=== PATIENT | female | born 1945 | race Caucasian/White ===

== ENCOUNTER 2019-02-15 15:45 | Emergency (ER) | payer MEDICARE ==
[~2019-02-15] VITALS: Ht 167.6 cm; Wt 57.0 kg
[2019-02-15 16:13] LABS: BASOPHILS # (AUTO) 0.1 X10'3 (0-0.2); BASOPHILS % (AUTO) 0.9 % (0-1); EOSINOPHILS # (AUTO) 0.2 X10'3 (0-0.9); EOSINOPHILS % (AUTO) 3.1 % (0-6); HEMATOCRIT 42.8 % (35.0-45.0); HEMOGLOBIN 14.6 g/dl (12.0-16.0); LYMPHOCYTES % (AUTO) 28.3 % (21-51); MEAN CORPUSCULAR HGB CONC 34.2 g/dL (33.0-36.5); MEAN CORPUSCULAR VOLUME 90.7 FL (78-98); MEAN PLATELET VOLUME 9.1 FL (7.4-10.4); MONOCYTES # (AUTO) 0.7 X10'3 (0-0.9); MONOCYTES % (AUTO) 9.5 % (2-12); NEUTROPHILS # (AUTO) 4.1 X10'3 (1.8-7.7); NEUTROPHILS % (AUTO) 58.2 % (42-75); PLATELET COUNT 288 X10'3 (140-440); RED BLOOD COUNT 4.72 X10'6 (4.20-5.60); RED CELL DISTRIBUTION WIDTH 12.7 % (11.5-14.5)
[2019-02-15] MEDS ORDERED: aspirin 81mg tab.chew PO ONE (16:20)
[2019-02-15 16:23] LABS: PARTIAL THROMBOPLASTIN TIME 27 SECONDS (22-32)
[2019-02-15 16:24] LABS: ALANINE AMINOTRANSFERASE 24 U/L (12-78); ALKALINE PHOSPHATASE 76 IU/L (46-116); ANION GAP 9 (8-16); ASPARTATE AMINO TRANSFERASE 19 U/L (10-37); BILIRUBIN,TOTAL 0.4 MG/DL (0.1-1.0); BLOOD UREA NITROGEN 28 MG/DL (7-18); BUN/CREATININE RATIO 30.4 (6.6-38.0); CALCIUM 9.1 MG/DL (8.5-10.1); CHLORIDE 105 MMOL/L (99-107); CREATININE 0.92 MG/DL (0.40-0.90); GLUCOSE 86 MG/DL (70-104); POTASSIUM 3.4 MMOL/L (3.5-5.1); SODIUM 143 MMOL/L (135-145); TOTAL CARBON DIOXIDE 29.2 MMOL/L (24-32); eGFR 60 ML/MIN
[2019-02-15 16:40] LABS: D-DIMER 0.29 MG/L FEU (0-0.50)
[2019-02-15 17:43] VITALS: BP 145/69
== END 2019-02-15 17:45 | disposition home or self-care (01) ==
LOC: ER 15:46
DX: R10.13 Epigastric pain (principal); R94.31 Abnormal electrocardiogram [ECG] [EKG]; Z88.5 Allergy status to narcotic agent
CPT/HCPCS: 36415; 71045; 80053; 83880; 84484; 85025; 85379; 85610; 85730; 93005; 99284

== ENCOUNTER 2019-07-27 09:56 | Day surgery (SDC) | payer MEDICARE ==
[2019-07-26 12:38] LABS: BASOPHILS # (AUTO) 0.1 X10'3 (0-0.2); EOSINOPHILS # (AUTO) 0.2 X10'3 (0-0.9); EOSINOPHILS % (AUTO) 2.7 % (0-6); HEMATOCRIT 43.2 % (35.0-45.0); HEMOGLOBIN 14.2 g/dl (12.0-16.0); LYMPHOCYTES # (AUTO) 1.9 X10'3 (1.1-4.8); LYMPHOCYTES % (AUTO) 33.5 % (21-51); MEAN CORPUSCULAR HEMOGLOBIN 30.7 PG (27.0-31.0); MEAN CORPUSCULAR VOLUME 92.9 FL (78-98); MEAN PLATELET VOLUME 9.4 FL (7.4-10.4); MONOCYTES # (AUTO) 0.5 X10'3 (0-0.9); MONOCYTES % (AUTO) 8.1 % (2-12); NEUTROPHILS # (AUTO) 3.1 X10'3 (1.8-7.7); NEUTROPHILS % (AUTO) 54.7 % (42-75); PLATELET COUNT 262 X10'3 (140-440); RED BLOOD COUNT 4.64 X10'6 (4.20-5.60); RED CELL DISTRIBUTION WIDTH 13.3 % (11.5-14.5); WHITE BLOOD COUNT 5.7 X10'3 (4.5-11.0)
[2019-07-26 12:48] LABS: ALBUMIN 3.7 G/DL (3.4-5.0); ANION GAP 6 (8-16); BLOOD UREA NITROGEN 21 MG/DL (7-18); BUN/CREATININE RATIO 22.1 (6.6-38.0); CALCIUM 9.3 MG/DL (8.5-10.1); CHLORIDE 106 MMOL/L (99-107); CREATININE 0.95 MG/DL (0.40-0.90); GLUCOSE 94 MG/DL (70-104); POTASSIUM 3.9 MMOL/L (3.5-5.1); SODIUM 143 MMOL/L (135-145); TOTAL CARBON DIOXIDE 31.1 MMOL/L (24-32); eGFR 58 ML/MIN
[2019-07-26 12:56] LABS: PARTIAL THROMBOPLASTIN TIME 28 SECONDS (22-32)
[~2019-07-27] VITALS: Ht 165.1 cm; Wt 57.1 kg
[2019-07-27] VITALS (11 sets, daily range): BP systolic 105–167; BP diastolic 38–70
[2019-07-27] MEDS ORDERED: LORazepam 0.5 MG tablet PO PRN ×2 (10:25→10:30)
[2019-07-27] MEDS ORDERED: diphenhydrAMINE 25mg capsule PO PRN ×2 (10:25→10:30)
[2019-07-27] MEDS ORDERED: LIDOcaine/PRILOcaine 5gm cream TP ONE (10:25)
[2019-07-27] MEDS ORDERED: normal saline 1,000 ML IV SCH ×3 (10:25→13:40)
[2019-07-27] MEDS ORDERED: UBID10CA4 PO (10:40)
[2019-07-27] MEDS ORDERED: HCTZ25T PO (10:40)
[2019-07-27] MEDS ORDERED: POTA-82 PO (10:40)
[2019-07-27] MEDS ORDERED: MAGN500C16 PO (10:40)
[2019-07-27] MEDS ORDERED: THY15T PO (10:40)
[2019-07-27] MEDS ORDERED: MULT-969 PO (10:40)
[2019-07-27] MEDS ORDERED: FISH1CAP15 PO (10:40)
[2019-07-27] MEDS ORDERED: CALC-1197 PO (10:40)
[2019-07-27] MEDS ORDERED: midazolam 2 mg/2 ml injection ONE (11:37)
[2019-07-27] MEDS ORDERED: iohexol 350 MG/ML 50ML vial IV ONE (11:37)
[2019-07-27] MEDS ORDERED: nitroGLYCERIN-Tridil 50MG/D5W 250 ML IV ONE (11:37)
[2019-07-27] MEDS ORDERED: iohexol 350MG/ML 100ml bottle IV ONE (11:37)
[2019-07-27] MEDS ORDERED: heparin 1,000unit/ml 10ml vial 10 ML ONE (11:37)
[2019-07-27] MEDS ORDERED: LIDOcaine 1% (10mg/ml)w/preservative injection 20ml MDV ONE (11:37)
[2019-07-27] MEDS ORDERED: fentaNYL/PF 50MCG/1 ML 2ML syringe ONE (11:37)
[2019-07-27] MEDS ORDERED: verapamil 2.5 mg/ml inj IV ONE (11:43)
[2019-07-27 17:11] LABS: ISTAT HGB ART 12.9 g/dl (12.0-16.0); ISTAT Hct ART 38 %PCV (35-48); ISTAT O2 SATURATION ARTERIAL 92 % (95-98); ISTAT SOURCE ART
[2019-07-27 17:11] LABS: ISTAT Hct MIX 37 %PCV (35-48); ISTAT O2 SATURATION MIX VENOUS 75 % (60-80); ISTAT SOURCE MIX
== END 2019-07-27 17:02 | disposition home or self-care (01) ==
LOC: SSTAY O 09:56 → MED 3N 09:58 → SSTAY O 17:02
PROVIDERS: ATTEND Internal Medicine Cardiovascular Disease
DX: R94.31 Abnormal electrocardiogram [ECG] [EKG] (principal); R06.02 Shortness of breath; I25.10 Atherosclerotic heart disease of native coronary artery without angina pectoris; I27.9 Pulmonary heart disease, unspecified; I10 Essential (primary) hypertension; G47.33 Obstructive sleep apnea (adult) (pediatric); E03.9 Hypothyroidism, unspecified; Z90.710 Acquired absence of both cervix and uterus; Z98.890 Other specified postprocedural states; Z79.899 Other long term (current) drug therapy; Z98.1 Arthrodesis status; Z88.5 Allergy status to narcotic agent
CPT/HCPCS: 36415; 80048; 82803; 85014; 85025; 85610; 85730; 93005; 93460; 99152; 99153; C1769; C1894; J1644; J2001; J2250; J3010; J7030; Q0163; Q9967; A4620; A5120; A6258; GO378; J3490

== ENCOUNTER → 2020-01-13 | Outpatient (CLI) | payer MEDICARE ==
[~2020-01-13] MED LIST: CALC-1215 PO; FISH1CAP15 PO; HCTZ25T PO; MAGN500C16 PO; MULT-969 PO; POTA-82 PO; THY15T PO; UBID10CA4 PO
== END | disposition home or self-care (01) ==
LOC: CARD DIAG 14:01
PROVIDERS: ATTEND Internal Medicine Cardiovascular Disease
DX: R06.02 Shortness of breath (principal)
CPT/HCPCS: 93306

== ENCOUNTER 2020-01-16 15:49 | Outpatient (CLI) | payer MEDICARE | END 2020-01-16 23:59 | disposition home or self-care (01) | LOC: CARD DIAG 15:49 | PROVIDERS: ATTEND Internal Medicine Cardiovascular Disease | DX: R06.02 Shortness of breath (principal) | CPT/HCPCS: 93308 ==